=== PATIENT | female | born 1955 | race Caucasian/White ===

== ENCOUNTER 2018-09-02 08:33 | Day surgery (SDC) | payer MEDICARE, MEDICAID ==
[~2018-09-02] VITALS: Ht 154.9 cm; Wt 55.8 kg
[2018-09-02] VITALS (8 sets, daily range): BP systolic 100–112; BP diastolic 58–73
[~2018-09-02 08:33] MED LIST: BUPIVAcaine/PF 2.5mg/ml (0.25%) 10ml vial ONE; FLUT1BLS3 INH; LEVO75TA PO; OMEP20TA5 PO; TIOT18CA3 INH; TRAM50TA2 PO; albuterol 2.5 MG/3 ML nebule NEB ONE; ceFAZolin 1,000 MG/D5W 50ML IVPB Premixed bag IV ONE; cefazolin/dext.iso 2gm/100 ML IV ONE; famotidine 20mg tablet PO ONE; ringers solution, lacted 1,000 ML IV SCH
[2018-09-02] MEDS ORDERED: LIDOcaine 1% 30ml preserv. free vial ONE (09:54)
[2018-09-02] MEDS ORDERED: ringers solution, lacted 1,000 ML IV SCH (10:12)
[2018-09-02] MEDS ORDERED: morphine 4 MG/ML inj SYRINge IV PRN ×2 (10:15)
[2018-09-02] MEDS ORDERED: meperidine/PF 25mg/ml syringe IV PRN ×3 (10:15)
[2018-09-02] MEDS ORDERED: ondansetron/PF 4mg/2ml inj IV PRN (10:15)
[2018-09-02] MEDS ORDERED: proCHLORperazine 10 MG/2 ml inj IV PRN (10:15)
[2018-09-02 10:39] LABS: BASOPHILS # (AUTO) 0.1 X10'3 (0-0.2); BASOPHILS % (AUTO) 1.2 % (0-1); EOSINOPHILS # (AUTO) 0.3 X10'3 (0-0.9); EOSINOPHILS % (AUTO) 3.2 % (0-6); LYMPHOCYTES # (AUTO) 1.6 X10'3 (1.1-4.8); MEAN PLATELET VOLUME 6.8 FL (7.4-10.4); MONOCYTES % (AUTO) 11.8 % (2-12); NEUTROPHILS # (AUTO) 5.6 X10'3 (1.8-7.7); NEUTROPHILS % (AUTO) 64.8 % (42-75); PRE OP HEMATOCRIT 42.8 % (35.0-45.0); PRE OP HEMOGLOBIN 14.1 g/dL (12.0-16.0); PRE OP PLATELET COUNT 471 X10'3 (140-440); RED BLOOD COUNT 4.87 X10'6 (4.20-5.60); RED CELL DISTRIBUTION WIDTH 14.9 % (11.5-14.5)
[2018-09-02 11:00] LABS: ALBUMIN 3.9 G/DL (3.4-5.0); ALBUMIN/GLOBULIN RATIO 1.1 (1.1-1.5); ALKALINE PHOSPHATASE 73 IU/L (46-116); BLOOD UREA NITROGEN 11 MG/DL (7-18); BUN/CREATININE RATIO 13.3 (6.6-38.0); CALCIUM 9.7 MG/DL (8.5-10.1); CHLORIDE 100 MMOL/L (99-107); CREATININE 0.83 MG/DL (0.40-0.90); PRE OP ALT 26 U/L (30-65); PRE OP ANION GAP 4 (8-16); PRE OP AST 21 U/L (10-37); PRE OP BILIRUB, TOTAL 0.3 MG/DL (0.0-1.0); PRE OP GLUCOSE 92 MG/DL (70-104); PRE OP POTASSIUM 4.2 MMOL/L (3.4-5.1); PRE OP SODIUM 137 MMOL/L (135-145); TOTAL PROTEIN 7.4 G/DL (6.4-8.2); eGFR 70 ML/MIN
[2018-09-02] MEDS ORDERED: BUPIVAcaine/PF 2.5mg/ml (0.25%) 10ml vial ONE (11:46)
[2018-09-02] MEDS ORDERED: MIDAZolam 5mg/5ml vial ONE (11:57)
[2018-09-02] MEDS ORDERED: fentaNYL/PF 50MCG/1 ML 2ML syringe ONE (11:57)
[2018-09-02] MEDS ORDERED: dexamethasone sod phosphate 4mg/ml inj. ONE (12:47)
--- NOTE | 2018-09-02 13:00 | NUR ---
Received from OR via bed, accompanied by Anesthesiologist. Report received. Initial physical assessment done and recorded
--- NOTE | 2018-09-02 14:00 | NUR ---
Discharge criteria met, discharge instructions given, demonstrates verbal understanding. Discharged home in good condition.
== END 2018-09-02 14:00 | disposition home or self-care (01) ==
LOC: PAS 08:33
PROVIDERS: ATTEND Orthopaedic Surgery Hand Surgery
DX: S52.572A Other intraarticular fracture of lower end of left radius, initial encounter for closed fracture (principal); S52.612A Displaced fracture of left ulna styloid process, initial encounter for closed fracture; X58.XXXA Exposure to other specified factors, initial encounter; Y93.89 Activity, other specified; Y92.89 Other specified places as the place of occurrence of the external cause; Y99.8 Other external cause status
CPT/HCPCS: 25609; 36415; 71045; 80053; 85025; 93005; 94640; 94760; A6222; A6449; C1713; J0690; J1100; J2250; J3010; J3490; J7120; A7000